=== PATIENT | male | born 1990 | race Caucasian/White ===

== ENCOUNTER 2019-02-11 11:51 | Emergency (ER) | payer OTHER ==
[~2019-02-11] VITALS: Ht 177.8 cm; Wt 117.9 kg
[~2019-02-11 11:51] MED LIST: PAXIL20 MG; POTASSIUM20 PO; VISTARIL 25 MG25 M1
[2019-02-11] MEDS ORDERED: NORVASC5 MG PO (12:02)
[2019-02-11] MEDS ORDERED: COZAAR 25 MG TA25 M1 PO (12:02)
[2019-02-11 12:27] LABS: ABSOLUTE EOSINOPHILS 0.1 thou/uL (0.0-0.7); ABSOLUTE LYMPHOCYTES 2.4 thou/uL (0.8-5.3); ABSOLUTE MONOCYTES 0.7 thou/uL (0.0-1.2); ABSOLUTE NEUTROPHILS 3.9 thou/uL (1.6-8.1); BASOPHILS 0.5 %; EOSINOPHILS 0.8 %; HEMATOCRIT 40.2 % (42.0-52.0); HEMOGLOBIN 14.1 gm/dL (14.0-18.0); LYMPHOCYTES 34.2 %; MCH 30.3 pg (26.0-34.0); MCHC 35.1 g/dL (28.0-37.0); MCV 86.4 fL (80.0-100.0); MONOCYTES 9.7 %; MPV 7.3 fl. (7.2-11.1); NUCLEATED RBCS 0 /100WBC; PLATELET COUNT* 215 thou/uL (150-400); POLYS 54.8 %; RBC 4.65 mil/uL (4.50-6.00); RDW-CV 12.6 % (10.5-14.5)
[2019-02-11 12:37] LABS: ANION GAP 8 mmol/L (7-16); BUN 11 mg/dL (7-18); CALCIUM 8.8 mg/dL (8.5-10.1); CHLORIDE 105 mmol/L (98-107); CO2 27 mmol/L (21-32); CREATININE 0.8 mg/dL (0.6-1.3); GLUCOSE 102 mg/dL (70-99); POTASSIUM 3.8 mmol/L (3.5-5.1); SODIUM 140 mmol/L (136-145)
[2019-02-11 12:49] LABS: ALBUMIN 3.9 g/dL (3.4-5.0); ALKALINE PHOSPHATASE 87 U/L (46-116); LIPASE 89 U/L (73-393); NT-PRO BRAIN NAT PEPTIDE 32 pg/mL (<300); SGOT 26 U/L (15-37); SGPT 56 U/L (30-65); TOTAL BILIRUBIN 0.3 mg/dL (<0.1-1.0); TOTAL PROTEIN 7.7 g/dL (6.4-8.2); TROPONIN-I LEVEL <0.06 ng/mL (<0.06)
[2019-02-11] MEDS ORDERED: CARAFATE1 GM PO (14:30)
[2019-02-11 14:41] VITALS: BP 130/80
--- NOTE | 2019-02-12 10:42 | EKG ---
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1990 Requested By: Shiva Olea Order Number: [id number] MD: Nolan Wooten Measurements Intervals [place] Rate: 71 P: 48 GA: 147 QRS: -12 QRSD: 115 T: 29 QT: 391 QTc: 425 Interpretive Statements Sinus rhythm Probable left ventricular hypertrophy, by voltage Baseline wander in lead(s) I,II,aVR,aVF Compared to ECG 12/03/2011 09:52:34 Sinus bradycardia no longer present Sinus arrhythmia no longer present Electronically Signed On 02-12-2019 10:42:19 CDT by Nolan Wooten [email or web address] <ELECTRONICALLY SIGNED> By: Nolan Wooten MD, FACC 02/12/19 1042 1153 1153 Nolan Wooten MD, [facility] /EPI
--- NOTE | 2019-02-12 10:43 | EKG ---
[place] [address] ELECTROCARDIOGRAM REPORT Name: SHARMILA ALVAREZ Room: 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
== END 2019-02-11 14:42 | disposition home or self-care (01) ==
LOC: M.ERS 11:51
PROVIDERS: Emergency Medicine Emergency Medical Services
DX: R07.9 Chest pain, unspecified (principal); R10.13 Epigastric pain; Z88.0 Allergy status to penicillin; Z88.1 Allergy status to other antibiotic agents

== ENCOUNTER 2019-05-11 07:01 | Emergency (ER) | payer OTHER ==
[~2019-05-11] VITALS: Ht 177.8 cm; Wt 120.2 kg
[~2019-05-11 07:01] MED LIST changes: +CARAFATE1 GM PO; +COZAAR 25 MG TA25 M1 PO; +NORVASC5 MG PO
[2019-05-11 08:00] LABS: INFLUENZA A ANTIGEN Negative (Negative); INFLUENZA B ANTIGEN Negative (Negative)
[2019-05-11 08:34] VITALS: BP 131/88
== END 2019-05-11 08:35 | disposition home or self-care (01) ==
LOC: M.ERS 07:01
PROVIDERS: Emergency Medicine
DX: J06.9 Acute upper respiratory infection, unspecified (principal); I10 Essential (primary) hypertension; Z88.0 Allergy status to penicillin; Z88.1 Allergy status to other antibiotic agents